=== PATIENT | female | born 1950 | race Caucasian/White ===

== ENCOUNTER → 2017-02-18 | Outpatient (CLI) | payer OTHER, MEDICARE | LOC: MC.RAD 10:25 | DX: Z12.31 Encounter for screening mammogram for malignant neoplasm of breast (principal) ==

== ENCOUNTER 2017-04-24 11:20 | Emergency (ER) | payer OTHER, MEDICARE ==
[~2017-04-24] VITALS: Ht 167.6 cm; Wt 81.8 kg
[2017-04-24 11:22] VITALS: BP 172/74; PULSE 66; TEMP 98.2
[2017-04-24] MEDS ORDERED: LEVOXYL0.025 MG (11:26)
[2017-04-24] MEDS ORDERED: PRIL40 (11:26)
[2017-04-24] MEDS ORDERED: EMERGEN-C 1,01000 MG PO (11:27)
[2017-04-24] MEDS ORDERED: OMEGA-3 1000 MG1 CAP PO (11:27)
[2017-04-24 12:48] LABS: BASO % 0.4 % (0.0-2.0); GRAN # 3.2 (1.4-6.5); GRAN % 60.5 % (42.2-75.2); LYMPH # 1.8 (1.2-3.4); LYMPH % 33.8 % (20.0-51.0); MEAN CELL VOLUME 81 fl (80.0-100.0); MEAN CORPUSCULAR HGB CONC 32 g/dl (33.0-37.0); MEAN PLATELET VOLUME 11.4 fl (7.4-10.4); MONO # 0.3 (0.1-0.6); MONO % 4.9 % (1.7-9.3); PLATELET COUNT 175 K/mm3 (130-400); RED BLOOD COUNT 4.41 M/mm3 (4.10-5.30); REDCELL DISTRIBUTION WIDTH-CV 14.6 % (11.5-14.5); WHITE BLOOD COUNT 5.3 K/mm3 (4.8-10.8)
[2017-04-24 12:50] LABS: PH 7 (5-8); SQUAMOUS EPITHELIAL None Seen /hpf; URINE APPEARANCE Clear; URINE BACTERIA None Seen /hpf; URINE BILIRUBIN Negative (NEGATIVE); URINE BLOOD Negative (NEGATIVE); URINE COLOR Colorless; URINE GLUCOSE Negative (NEGATIVE); URINE KETONE Negative (NEGATIVE); URINE RBC 0-2 /hpf; URINE UROBILINOGEN Negative (NEGATIVE); URINE WBC 0-2 /hpf
[2017-04-24 13:01] LABS: BILIRUBIN,TOTAL 0.6 mg/dL (0.0-1.0); C-REACTIVE PROTEIN 0.7 mg/dL (0.0-0.9); CREATININE, serum 0.69 mg/dL (0.52-1.25); POTASSIUM 4.2 mmol/L (3.4-5.0); TOTAL PROTEIN 7.4 gm/dL (6.4-8.2)
[2017-04-24 13:03] LABS: HEMATOCRIT 35.5 % (37.0-47.0); HEMOGLOBIN 11.4 g/dl (12.5-16.0); MEAN CORPUSCULAR HEMOGLOBIN 26 pg (27.0-31.0)
[2017-04-24] MEDS ORDERED: NORCO 325 MG-51 TAB PO (14:25)
== END 2017-04-24 14:39 | disposition home or self-care (01) ==
LOC: COL.ER 11:20
PROVIDERS: Nurse Practitioner
DX: R10.31 Right lower quadrant pain (principal); Z90.49 Acquired absence of other specified parts of digestive tract; K21.9 Gastro-esophageal reflux disease without esophagitis; E07.9 Disorder of thyroid, unspecified; Z87.19 Personal history of other diseases of the digestive system
CPT/HCPCS: Q9967

== ENCOUNTER → 2019-02-14 | Outpatient (CLI) | payer BC, MEDICARE, OTHER ==
[~2019-02-14] MED LIST: EMERGEN-C 1,01000 MG PO; LEVOXYL0.025 MG; NORCO 325 MG-51 TAB PO; OMEGA-3 1000 MG1 CAP PO; PRIL40
== END ==
LOC: MC.RAD 10:12
DX: Z12.31 Encounter for screening mammogram for malignant neoplasm of breast (principal)